=== PATIENT | male | born 1940 | race Caucasian/White ===

== ENCOUNTER → 2017-10-10 10:49 | Outpatient (CLI) | payer MEDICARE, SELFPAY ==
[2017-09-26 12:06] VITALS: TEMP 36.6
[2017-10-10 11:19] LABS: Add Manual Diff / Slide Review NO; Basophils Percent Auto 0.5 % (0-2); Hematocrit 34.2 % (41-53); Lymphocytes Percent Auto 22.7 % (25-40); Mean Corpuscular HGB Conc 35.1 % (30-36); Mean Corpuscular Hemoglobin 36.1 PG (26-34); Mean Corpuscular Volume 102.9 fL (80-100); Monocytes Percent Auto 8.2 % (3-14); Neutrophils Absolute Auto 2000 /uL (3000-5900); Neutrophils Percent Auto 64.6 % (50-75); Platelet Count 51 X10^3/uL (150-400); Red Blood Cell Count 3.33 X10^6/uL (4.5-5.9); Red Cell Distribution Width 14.1 % (11.6-14.8); White Blood Cell Count 3.1 X10^3/uL (4.5-11.0)
== END ==
PROVIDERS: Family Provider Family Medicine; PCP Family Medicine; Visit Provider Internal Medicine Hematology & Oncology
DX: C90.00 Multiple myeloma not having achieved remission (principal)
CPT/HCPCS: 36415; 85025

== ENCOUNTER → 2017-10-24 10:54 | Outpatient (CLI) | payer MEDICARE, SELFPAY ==
[2017-09-26 12:06] VITALS: TEMP 36.6
[2017-10-24 12:29] LABS: Alanine Aminotransferase 137 IU/L (21-72); Albumin 4.2 g/dL (3.5-5.0); Albumin Globulin Ratio 1.3 (1.0-2.8); Alkaline Phosphatase 96 U/L (38-126); Aspartate Aminotransferase 99 IU/L (17-59); BUN Creatinine Ratio 17.3 (6-22); Blood Urea Nitrogen 19 mg/dL (9-20); Calcium 9.6 mg/dL (8.4-10.2); Carbon Dioxide 25 mmol/L (22-32); Chloride 98 mmol/L (98-107); Estimated Glomerular Filt Rate > 60.0 mL/min (>60); Globulin 3.3 g/dL (1.7-4.1); Glucose 228 mg/dL (80-110); HEMOLYSIS < 15 (0-50); Potassium 4.4 mmol/L (3.4-5.1); Sodium 139 mmol/L (137-145); Total Protein 7.5 g/dL (6.3-8.2)
[2017-10-26 14:18] LABS: Free Kappa Light Chain 122.1 mg/L (3.3-19.4); Free Kappa/ Lambda Ratio 11.47 (0.26-1.65); Free Lambda 10.6 mg/L (5.7-26.3)
[2017-10-26 15:46] LABS: Immunoglobulin G, Quantitative 724 mg/dL (694-1618)
[2017-10-30 15:41] LABS: Immunoglobulin A 751
== END ==
PROVIDERS: Family Provider Family Medicine; PCP Family Medicine; Visit Provider Internal Medicine Hematology & Oncology
DX: C43.9 Malignant melanoma of skin, unspecified (principal)
CPT/HCPCS: 36415; 80053; 82784; 83883

== ENCOUNTER → 2017-11-01 12:42 | Outpatient (CLI) | payer MEDICARE, SELFPAY ==
[2017-11-01 13:19] LABS: Add Manual Diff / Slide Review NO; Basophils Percent Auto 0.5 % (0-2); Eosinophils Percent Auto 3.9 % (2-4); Hematocrit 34.6 % (41-53); Lymphocytes Percent Auto 27.5 % (25-40); Mean Corpuscular HGB Conc 34.7 % (30-36); Mean Corpuscular Volume 103.8 fL (80-100); Monocytes Percent Auto 8.7 % (3-14); Neutrophils Absolute Auto 1800 /uL (3000-5900); Neutrophils Percent Auto 59.4 % (50-75); Platelet Count 59 X10^3/uL (150-400); Red Blood Cell Count 3.33 X10^6/uL (4.5-5.9)
[2017-11-01 13:55] LABS: Free T4, Direct Thyroxine 1.17 ng/dL (0.78-2.19)
[2017-11-01 14:09] LABS: Thyroid Stimulating Hormone 1.29 uIU/mL (0.47-4.68)
[2017-11-01 14:44] LABS: Folate > 20.0 ng/mL (2.76-20.0)
[2017-11-01 15:37] LABS: Vitamin B12 > 1000 pg/mL (239-931)
== END ==
PROVIDERS: Family Provider Family Medicine; PCP Family Medicine; Visit Provider Internal Medicine Hematology & Oncology
DX: E78.00 Pure hypercholesterolemia, unspecified (principal); Z85.820 Personal history of malignant melanoma of skin
CPT/HCPCS: 82607; 82746; 84439; 84443; 85025

== ENCOUNTER → 2017-11-05 14:01 | Outpatient (CLI) | payer MEDICARE, SELFPAY ==
--- NOTE | 2017-11-05 | DI.US.S_ITS ---
PROCEDURE: US ABDOMEN COMPLETE INDICATIONS: Multiple Myeloma TECHNIQUE: Real-time scanning was performed of the abdominal and retroperitoneal organs, with image documentation. COMPARISON: [facility], [place], ABDOMEN COMPLETE, 01/23/2008, 10:14. FINDINGS: Liver: Liver is diffusely increased in echogenicity. No focal hepatic abnormalities identified. Normal hepatic size. Gallbladder: No gallstones identified. Normal gallbladder wall. No pericholecystic fluid. Negative sonographic Forrest sign. Biliary ducts: Intrahepatic bile ducts are non-dilated. Extrahepatic bile duct caliber measures 5.0 mm. Normal is 6-7 mm or less in diameter, or 10 mm or less post-cholecystectomy. Pancreas: Not well-seen. Spleen: Spleen is enlarged in size at 15.3 cm in length and homogeneous in echotexture. Kidneys: Kidneys are normal in size and echotexture. Right kidney measures 10.7 cm long; left kidney measures 1.9 cm long. No hydronephrosis or nephrolithiasis. No solid masses. Aorta: Visualized aorta is normal in caliber at less than 3 cm. Iliacs: Not visualized. IVC: Not visualized. Miscellaneous: No free abdominal fluid. IMPRESSION: 1. Increased hepatic echogenicity noted likely related to fatty infiltration. 2. Sonographic splenomegaly. Dictated by: Gary Bustamante [facility] Interpreted: Lyle Rice MD on 11/05/2017 at 15:09 Approved by: Lyle Rice M.D. on 11/05/2017 at 17:42
== END ==
PROVIDERS: Family Provider Family Medicine; PCP Family Medicine; Visit Provider Nurse Practitioner Gerontology
DX: C90.00 Multiple myeloma not having achieved remission (principal); R16.1 Splenomegaly, not elsewhere classified
CPT/HCPCS: 76700

== ENCOUNTER → 2018-01-14 11:13 | Outpatient (CLI) | payer MEDICARE, SELFPAY ==
[2018-01-14 11:26] LABS: Add Manual Diff / Slide Review NO; Basophils Percent Auto 0.7 % (0-2); Eosinophils Percent Auto 4.2 % (2-4); Hematocrit 32.4 % (41-53); Hemoglobin 11.3 g/dL (13.5-17.5); Lymphocytes Percent Auto 23.4 % (25-40); Mean Corpuscular HGB Conc 34.8 % (30-36); Mean Corpuscular Hemoglobin 34.9 PG (26-34); Mean Corpuscular Volume 100.4 fL (80-100); Monocytes Percent Auto 8.7 % (3-14); Neutrophils Absolute Auto 1300 /uL (3000-5900); Platelet Count 47 X10^3/uL (150-400); Red Blood Cell Count 3.23 X10^6/uL (4.5-5.9); Red Cell Distribution Width 15.8 % (11.6-14.8); White Blood Cell Count 2.1 X10^3/uL (4.5-11.0)
[2018-01-14 11:44] LABS: BUN Creatinine Ratio 23.3 (6-22); Blood Urea Nitrogen 28 mg/dL (9-20); Calcium 9.5 mg/dL (8.4-10.2); Carbon Dioxide 29 mmol/L (22-32); Chloride 100 mmol/L (98-107); Glucose 239 mg/dL (80-110); HEMOLYSIS < 15 (0-50); Potassium 4.6 mmol/L (3.4-5.1); Sodium 140 mmol/L (137-145)
--- NOTE | 2018-01-14 12:21 | PC.NURSE ---
Here for CBC,BMP both of which appear stable with the CBC values on an upward trend as pt moves thru his bonita
== END ==
PROVIDERS: Family Provider Family Medicine; PCP Family Medicine; Visit Provider Internal Medicine Hematology & Oncology
DX: D69.6 Thrombocytopenia, unspecified (principal)
CPT/HCPCS: 36415; 80048; 85025

== ENCOUNTER → 2018-01-30 10:29 | Outpatient (CLI) | payer MEDICARE, SELFPAY ==
[2018-01-30 10:58] LABS: Add Manual Diff / Slide Review NO; Basophils Percent Auto 0.5 % (0-2); Eosinophils Percent Auto 3.8 % (2-4); Hematocrit 33.4 % (41-53); Hemoglobin 11.4 g/dL (13.5-17.5); Lymphocytes Percent Auto 12.7 % (25-40); Mean Corpuscular HGB Conc 34.2 % (30-36); Mean Corpuscular Hemoglobin 35.2 PG (26-34); Mean Corpuscular Volume 102.8 fL (80-100); Monocytes Percent Auto 6.3 % (3-14); Neutrophils Absolute Auto 2300 /uL (3000-5900); Neutrophils Percent Auto 76.7 % (50-75); Platelet Count 50 X10^3/uL (150-400); Red Blood Cell Count 3.25 X10^6/uL (4.5-5.9); Red Cell Distribution Width 16.3 % (11.6-14.8)
[2018-01-30 11:09] LABS: Alanine Aminotransferase 119 IU/L (21-72); Albumin 4.1 g/dL (3.5-5.0); Albumin Globulin Ratio 1.3 (1.0-2.8); Alkaline Phosphatase 93 U/L (38-126); Aspartate Aminotransferase 73 IU/L (17-59); BUN Creatinine Ratio 14.6 (6-22); Bilirubin Total 1.2 mg/dL (0.2-1.3); Blood Urea Nitrogen 19 mg/dL (9-20); Calcium 9.4 mg/dL (8.4-10.2); Carbon Dioxide 31 mmol/L (22-32); Chloride 98 mmol/L (98-107); Estimated Glomerular Filt Rate 53.8 mL/min (>60); Globulin 3.2 g/dL (1.7-4.1); Glucose 239 mg/dL (80-110); HEMOLYSIS < 15 (0-50); Lactate Dehydrogenase 515 U/L (313-618); Potassium 4.4 mmol/L (3.4-5.1); Sodium 140 mmol/L (137-145); Total Protein 7.3 g/dL (6.3-8.2)
[2018-02-01 13:26] LABS: Free Kappa Light Chain 129.6 mg/L (3.3-19.4); Free Kappa/ Lambda Ratio 13.67 (0.26-1.65); Free Lambda 9.5 mg/L (5.7-26.3)
[2018-02-03 09:29] LABS: Immunoglobulin A 1043 mg/dL (81-463); Immunoglobulin G, Quantitative 411 mg/dL (694-1618); Immunoglobulin M, Quantitative 52 mg/dL (48-271)
[2018-02-05 13:03] LABS: Albumin 3.7 g/dL (3.8-4.8); Alpha 1 Globulin 0.2 g/dL (0.2-0.3); Alpha 2 Globulin 0.7 g/dL (0.5-0.9); Beta 1 Globulin 1.2 g/dL (0.4-0.6); Gamma Globulin 0.4 g/dL (0.8-1.7); Protein, Total 6.5 g/dL (6.1-8.1)
== END ==
PROVIDERS: Family Provider Family Medicine; PCP Family Medicine; Visit Provider Internal Medicine Hematology & Oncology
DX: C90.00 Multiple myeloma not having achieved remission (principal); Z85.820 Personal history of malignant melanoma of skin
CPT/HCPCS: 36415; 80053; 82784; 83615; 83883; 84155; 84165; 85025

== ENCOUNTER → 2018-03-06 12:00 | Outpatient (CLI) | payer MEDICARE, SELFPAY ==
[2018-03-06 11:47] LABS: Add Manual Diff / Slide Review NO; Basophils Percent Auto 0.3 % (0-2); Eosinophils Percent Auto 0.6 % (2-4); Hemoglobin 12.1 g/dL (13.5-17.5); Lymphocytes Percent Auto 11.7 % (25-40); Mean Corpuscular HGB Conc 33.7 % (30-36); Mean Corpuscular Hemoglobin 35.4 PG (26-34); Mean Corpuscular Volume 105.1 fL (80-100); Monocytes Percent Auto 2.3 % (3-14); Neutrophils Absolute Auto 3500 /uL (3000-5900); Neutrophils Percent Auto 85.1 % (50-75); Platelet Count 48 X10^3/uL (150-400); Red Blood Cell Count 3.43 X10^6/uL (4.5-5.9); Red Cell Distribution Width 16.7 % (11.6-14.8); White Blood Cell Count 4.1 X10^3/uL (4.5-11.0)
[2018-03-06 12:01] LABS: Cholesterol 208 mg/dL (140-199); HDL Cholesterol 74 mg/dL (40-60); LDL Cholesterol Calculated 60 mg/dL (<100); Triglycerides 372 mg/dL (35-150)
[2018-03-06 12:02] LABS: Alanine Aminotransferase 161 IU/L (21-72); Albumin 3.9 g/dL (3.5-5.0); Albumin Globulin Ratio 1.3 (1.0-2.8); Alkaline Phosphatase 103 U/L (38-126); Aspartate Aminotransferase 88 IU/L (17-59); BUN Creatinine Ratio 28.5 (6-22); Bilirubin Total 0.8 mg/dL (0.2-1.3); Blood Urea Nitrogen 37 mg/dL (9-20); Calcium 8.6 mg/dL (8.4-10.2); Carbon Dioxide 23 mmol/L (22-32); Chloride 98 mmol/L (98-107); Estimated Glomerular Filt Rate 53.8 mL/min (>60); Globulin 2.9 g/dL (1.7-4.1); Glucose 381 mg/dL (80-110); HEMOLYSIS < 15 (0-50); Lactate Dehydrogenase 618 U/L (313-618); Potassium 4.5 mmol/L (3.4-5.1); Sodium 136 mmol/L (137-145); Total Protein 6.8 g/dL (6.3-8.2)
[2018-03-06 12:17] LABS: Hemoglobin A1C% w Est Avg Glu 10.6 % (4.0-6.0)
[2018-03-06 12:20] LABS: Vitamin D 25 Hydroxy (D3) 35.1 ng/mL (30.0-100.0)
[2018-03-06 12:32] LABS: Prostate Specific Antigen Scrn 2.95 ng/mL (0.1-4.0)
[2018-03-08 13:32] LABS: Immunoglobulin A 996 mg/dL (81-463); Immunoglobulin G, Quantitative 344 mg/dL (694-1618); Immunoglobulin M, Quantitative 43 mg/dL (48-271)
[2018-03-08 14:23] LABS: Beta-2-Microglobulin 2.56 mg/L (< 2.52)
[2018-03-08 14:29] LABS: Free Kappa Light Chain 95.7 mg/L (3.3-19.4); Free Kappa/ Lambda Ratio 11.24 (0.26-1.65); Free Lambda 8.5 mg/L (5.7-26.3)
[2018-03-10 17:11] LABS: Albumin 3.6 g/dL (3.8-4.8); Alpha 1 Globulin 0.2 g/dL (0.2-0.3); Alpha 2 Globulin 0.7 g/dL (0.5-0.9); Beta 1 Globulin 1.2 g/dL (0.4-0.6); Gamma Globulin 0.4 g/dL (0.8-1.7); Protein, Total 6.4 g/dL (6.1-8.1)
== END ==
PROVIDERS: Student in an Organized Health Care Education/Training Program; Family Provider Family Medicine; PCP Family Medicine; Visit Provider Internal Medicine Hematology & Oncology
DX: C90.00 Multiple myeloma not having achieved remission (principal); R35.1 Nocturia; E11.9 Type 2 diabetes mellitus without complications; E78.00 Pure hypercholesterolemia, unspecified; E55.9 Vitamin D deficiency, unspecified; Z12.5 Encounter for screening for malignant neoplasm of prostate
CPT/HCPCS: 36415; 80053; 80061; 82232; 82306; 82784; 83036; 83615; 83883; 84155; 84165; 85025; G0103

== ENCOUNTER → 2018-04-03 10:49 | Outpatient (CLI) | payer MEDICARE, SELFPAY ==
[2018-04-03 11:55] LABS: Add Manual Diff / Slide Review NO; Basophils Percent Auto 0.4 % (0-2); Eosinophils Percent Auto 0.5 % (2-4); Hematocrit 31.8 % (41-53); Hemoglobin 10.9 g/dL (13.5-17.5); Lymphocytes Percent Auto 12.6 % (25-40); Mean Corpuscular HGB Conc 34.2 % (30-36); Mean Corpuscular Hemoglobin 35.7 PG (26-34); Mean Corpuscular Volume 104.5 fL (80-100); Monocytes Percent Auto 3.9 % (3-14); Neutrophils Absolute Auto 2800 /uL (3000-5900); Neutrophils Percent Auto 82.6 % (50-75); Red Blood Cell Count 3.05 X10^6/uL (4.5-5.9); Red Cell Distribution Width 16.2 % (11.6-14.8); White Blood Cell Count 3.4 X10^3/uL (4.5-11.0)
[2018-04-03 12:25] LABS: Alanine Aminotransferase 62 IU/L (21-72); Albumin 4.1 g/dL (3.5-5.0); Albumin Globulin Ratio 1.3 (1.0-2.8); Alkaline Phosphatase 78 U/L (38-126); Aspartate Aminotransferase 39 IU/L (17-59); BUN Creatinine Ratio 15.6 (6-22); Bilirubin Total 1.1 mg/dL (0.2-1.3); Blood Urea Nitrogen 25 mg/dL (9-20); Calcium 9.7 mg/dL (8.4-10.2); Carbon Dioxide 27 mmol/L (22-32); Chloride 100 mmol/L (98-107); Estimated Glomerular Filt Rate 42.3 mL/min (>60); Globulin 3.1 g/dL (1.7-4.1); Glucose 116 mg/dL (80-110); HEMOLYSIS < 15 (0-50); Lactate Dehydrogenase 523 U/L (313-618); Potassium 4.7 mmol/L (3.4-5.1); Sodium 140 mmol/L (137-145); Total Protein 7.2 g/dL (6.3-8.2)
[2018-04-03 12:53] LABS: Anisocytosis 2+; Macrocytosis 1+; Platelet Count 47 X10^3/uL (150-400); Poikilocytosis 1+; Polychromasia 2+
[2018-04-03 13:00] LABS: Tear Drop Cells 1+
[2018-04-04 16:09] LABS: Free Kappa Light Chain 165.1 mg/L (3.3-19.4); Free Kappa/ Lambda Ratio 15.18 (0.26-1.65); Free Lambda 10.9 mg/L (5.7-26.3)
[2018-04-06 13:13] LABS: Immunoglobulin G, Quantitative 311 mg/dL (694-1618); Immunoglobulin M, Quantitative 45 mg/dL (48-271)
[2018-04-07 14:33] LABS: Abnormal Protein Band 1 0.1 g/dL (NONE DETECTED); Albumin 3.3 g/dL (3.8-4.8); Alpha 1 Globulin 0.3 g/dL (0.2-0.3); Alpha 2 Globulin 0.8 g/dL (0.5-0.9); Beta 1 Globulin 1.2 g/dL (0.4-0.6); Gamma Globulin 0.4 g/dL (0.8-1.7); Protein, Total 6.4 g/dL (6.1-8.1)
== END ==
PROVIDERS: Family Provider Family Medicine; PCP Student in an Organized Health Care Education/Training Program; Visit Provider Nurse Practitioner Gerontology
DX: C90.00 Multiple myeloma not having achieved remission (principal); D69.6 Thrombocytopenia, unspecified
CPT/HCPCS: 36415; 80053; 82784; 83615; 83883; 84155; 84165; 85025

== ENCOUNTER 2018-05-13 10:52 | Day surgery (SDC) | payer MEDICARE, SELFPAY ==
[2018-05-08 11:03] VITALS: BMI 36.6
[2018-05-13] VITALS (7 sets, daily range): BP systolic 118–132; BP diastolic 62–74; PULSE 54–56; RESP 12–18; TEMP 36–36.4; O2SAT 93–97; BMI 35.4
--- NOTE | 2018-05-13 | DI.RAD.S_ITS ---
PROCEDURE: XR CHEST 1V INDICATIONS: PORT A CATH PLACEMENT TECHNIQUE: One view of the chest was acquired. COMPARISON: [facility], , CHEST 2 VIEW, 06/04/2015, 11:08. [facility], , CHEST 1 VIEW, 12/03/2012, 19:28. FINDINGS: Surgical changes and devices: Port-A-Cath from a left-sided approach extends into the distal SVC area. Lungs and pleura: No pleural effusions or pneumothorax. Lungs are clear. Mediastinum: Mediastinal contours appear normal. Heart size is normal. Bones and chest wall: No suspicious bony lesions. Overlying soft tissues appear unremarkable. IMPRESSION: Port-A-Cath in normal position from the left-sided approach, no pneumothorax. Dictated by: Garrick Navarro M.D. on 05/13/2018 at 13:16 Approved by: Garrick Navarro M.D. on 05/13/2018 at 13:17
--- NOTE | 2018-05-13 11:38 | PM.PREOP ---
Pre-operative Note Interval Note Pre-op Check: Yes History & Physical Reviewed by Physician and Yes Exam Performed Changes: No H&P completed within 30 days and has changed as indicated here:: Patient seen in the preoperative area. His history and physical examination within the last 30 days has not changed in remains on the chart as previously dictated. Proceed with port placement today as planned.
[2018-05-13] MEDS: LACTATED RINGERS 1,000 ML 42 ML IV (11:42)
[2018-05-13] MEDS: CEFAZOLIN 2 GM/100 ML FROZ.PIGGY IV (12:00)
--- NOTE | 2018-05-13 12:24 | SUR.OPER ---
Supine on padded OR bed, head on pillow, right arm secured on padded arm boards at <90 degrees abduction,left arm is tucked, legs uncrossed, safety belt at thigh, tape over blanket over lower legs.
[2018-05-13] MEDS: LIDOCAINE 1% 20 ML INJ INJ (12:34)
[2018-05-13] MEDS: SODIUM CHLORIDE 0.9% FLUSH 10 ML IV (12:35)
--- NOTE | 2018-05-13 13:17 | P.OP_ITS ---
Operative Date/Time/Diagnoses Date of procedure: 05/13/18 Time of procedure: 13:12 Pre-op diagnosis: Multiple myeloma requiring long-term IV access for chemotherapy Post-op diagnosis: same Procedure & Clinicians Procedure: Placement of tunneled central venous Port-A-Cath device via left subclavian approach Same procedure as scheduled: Yes Indications: 77-year-old male with multiple myeloma and recent progression of his disease. He was recommended undergo systemic chemotherapy. Long-term IV access was needed for such. Therefore port placement was recommended. Surgeon: Landon Claros Click Yes if Unassisted: Yes Anesthesia Type: General Operative Notes Findings: 1. Significant cardiomegaly 2. Left subclavian central venous port device in good position with tip in distal superior vena cava by fluoroscopy at the conclusion of the case 3. Excellent aspiration and flushing of tunneled port device at the conclusion of the case 4. Postoperative chest x-ray demonstrating good position of the catheter with no evidence of pneumothorax. Closure Type: primary Specimen(s): none sent Implants & Drains: Nine [place] standard tunneled central venous port device via left subclavian approach Applied: catheter (See above) Estimated Blood Loss (mL): 15 Blood products transfused: none Procedure in detail: After obtaining informed consent patient was brought to the operating room placed supine on the table. Left arm was tucked to the side and padded appropriately. Shoulder roll was placed. After satisfactory induction of anesthesia the neck and chest were prepped and draped in usual sterile fashion. SCOAP time out was performed per standard protocol. Patient was placed in Trendelenburg position. A total 10 cc 1% plain lidocaine was injected in the skin and subcutaneous tissue at the inferior aspect of the left clavicle and anterior chest wall for postoperative analgesia. Introducer needle was placed percutaneously deep to the left clavicle in the left subclavian vein was accessed without difficulty on the 1st attempt. Guidewire was threaded distally and secured. Fluoroscopy confirmed good position of the wire in the right heart although he had some cardiomegaly and deviation of the trachea to the right. Patient was returned to supine position. Guidewire was secured after removing the needle and a transverse skin incision was created over the left anterior chest wall inferior to the guidewire insertion site using 15 scalpel blade. Bovie was used to achieve hemostasis and carried the dissection down to the pectoralis fascia. Subcutaneous pocket was bluntly dissected large enough to accommodate the port device itself. The catheter was attached to the port device using the locking mechanism and noted to flush easily with Hernandez needle and saline flush. The port was placed in the subcutaneous pocket and secured with 3 individual interrupted 3 0 Prolene suture to the anterior chest wall. Catheter was brought to exit through a subcutaneous tunnel at the guidewire insertion site using the tunneling device. Fluoroscopy was used to estimate the size of the catheter required to achieve appropriate position, and the catheter was then cut at approximately 27 cm length using straight Leon scissors. Using direct fluoroscopic visualization the venous dilator and sheath were placed via sterile Seldinger technique into the central venous system. Catheter was threaded distally through the sheath after removing the guidewire and dilator as a single unit. Sheath was removed and discarded. Fluoroscopy showed the catheter to be in good position. Port was accessed with straight Hernandez needle under direct visualization and noted to aspirate and flush easily. There was no evidence of extravasation. Subcutaneous pocket was irrigated with sterile saline solution and noted to be hemostatic. Subcutaneous tissue at the guidewire insertion site as well as the subcutaneous pocket was reapproximated with interrupted 3 0 Vicryl suture. Four 0 Monocryl suture was placed in a subcuticular running fashion to close the skin. Dermal adhesive was applied. Following closure the device was accessed percutaneously with a straight Hernandez needle and noted to aspirate and flushed with saline followed by 2000 units of heparin. Needle was removed. Anesthesia was reversed and the patient extubated in the operating room. He was taken recovery stable condition. Complications: none Condition: stable Disposition: PACU Plan for aftercare: 1. Discharge home 2. Follow up in medical oncology as scheduled for chemotherapy
--- NOTE | 2018-05-13 14:03 | SUR.PHASEII ---
pt's x-ray was clear per Dr. Claros. Pt d\nupur with . denied any pain upon d/c wound dry and intact upon d/c. Pt had 2 cranberry juices and a pack of crackers prior to d/c. Pt denies nausea.
== END 2018-05-13 13:55 | disposition home or self-care (01) ==
PROVIDERS: PCP Family Medicine; Visit Provider Surgery
PROC: (CPT 36561; principal; 2018-05-13 12:45)
DX: C90.00 Multiple myeloma not having achieved remission (principal); Z45.2 Encounter for adjustment and management of vascular access device; I25.2 Old myocardial infarction; I10 Essential (primary) hypertension; E78.5 Hyperlipidemia, unspecified; I25.10 Atherosclerotic heart disease of native coronary artery without angina pectoris; F10.10 Alcohol abuse, uncomplicated; D64.9 Anemia, unspecified; E66.9 Obesity, unspecified; Z68.36 Body mass index [BMI] 36.0-36.9, adult
CPT/HCPCS: 36561; 71045; 76000; C1788; J0690; J1644; J2405; J2704; J3010

== ENCOUNTER → 2018-07-01 10:10 | Outpatient (CLI) | payer MEDICARE, SELFPAY ==
--- NOTE | 2018-07-01 10:12 | DI.US.S_ITS ---
PROCEDURE: US ABDOMEN COMPLETE INDICATIONS: MULTIPLE MYEOLOMA NOT HAVING ACHIEVED REMISSION TECHNIQUE: Real-time scanning was performed of the abdominal and retroperitoneal organs, with image documentation. COMPARISON: [facility], [place], [place] PET CT FUSION SKULL 2 THIGH, 05/14/2018, 14:06. [facility], [place], [place] ABDOMEN COMPLETE, 11/05/2017, 14:28. FINDINGS: Liver: Liver is diffusely increased in echogenicity. No focal hepatic abnormalities identified. Normal hepatic size. Gallbladder: No gallstones identified. Normal gallbladder wall. No pericholecystic fluid. Negative sonographic Forrest sign. Biliary ducts: Intrahepatic bile ducts are non-dilated. Extrahepatic bile duct caliber measures 4.6 mm. Normal is 6-7 mm or less in diameter, or 10 mm or less post-cholecystectomy. Pancreas: Visualized portions of the pancreas are sonographically normal. Spleen: Spleen is normal in enlarged at 15.3 cm and homogeneous in echotexture. Kidneys: Kidneys are normal in size and echotexture. Right kidney measures 10.1 cm long; left kidney measures 10.1 cm long. No hydronephrosis or nephrolithiasis. No solid masses. Aorta: Visualized aorta is normal in caliber at less than 3 cm. Iliacs: Not visualized. IVC: Intrahepatic inferior vena cava is patent. Miscellaneous: No free abdominal fluid. IMPRESSION: 1. Increased hepatic echogenicity noted possibly related to hepatic steatosis but other sources of hepatocellular disease cannot be excluded. Recommend clinical correlation. 2. Sonographic splenomegaly redemonstrated. Dictated by: Gary LAMBERT Interpreted: Lennox Marroquin MD on 07/01/2018 at 11:10 Approved by: Lennox Marroquin M.D. on 07/01/2018 at 18:39
== END ==
PROVIDERS: PCP Student in an Organized Health Care Education/Training Program; Visit Provider Internal Medicine Hematology & Oncology
DX: C90.00 Multiple myeloma not having achieved remission (principal); R16.1 Splenomegaly, not elsewhere classified
CPT/HCPCS: 76700

== ENCOUNTER → 2018-08-27 12:05 | Outpatient (CLI) | payer MEDICARE, SELFPAY ==
--- NOTE | 2018-08-27 | DI.ECHO.S_ITS ---
[facility] +---------+ : : [address] : : : : [id number] : : : : Phone: [phone]+ Echocardiogram Report + + :Name: NATACHA MORENO Study Date: 08/27/2018 Height: 67 in : :[facility] Exam Location: [place] Weight: 220 lb : : Gender: Male BSA: 2.1 m2 : :: 1940 Age: 77 yrs BP: 120/70 mmHg: :Reason For Study: Fatigue : :Ordering Physician: Dionicio : :Mitch Performed By: Adriana Page : :Referring: UNSPECIFIED : + + Interpretation Summary The patient was not feeling well and was unable to complete the subcostals and suprasternal notch due to vomiting . He said it was likely due to his cancer treatment .He started feeling better and his took him home. 1) Normal left ventricular size, wall motion, and systolic function (EF 65- 70%). 2) Normal right ventricular size and function. 3) The left atrium is severely dilated. 4) Very mild aortic stenosis present (mean gradient 10.6mmHg, valve area 2.2 cm2). 5) Compared to the Echo done 11/20/2016, very mild aortic stenosis is present on this study. Procedure: A two-dimensional transthoracic echocardiogram with color flow and Doppler was performed. The study quality was technically adequate. Comparison is made with the echocardiogram of 11/20/2016. The patient was in normal sinus rhythm during the exam. Left Ventricle: There is mild concentric left ventricular hypertrophy. The left ventricle is normal in size. The ejection fraction is estimated to be 65- 70%. There are no focal wall motion abnormalities. Right Ventricle: The right ventricle is normal in size and function. Atria: The left atrium is severely dilated. Right atrial size is normal. There is no Doppler evidence for an interatrial shunt. Mitral Valve: The mitral valve is normal in structure and function. There is trace mitral regurgitation. Aortic Valve: The aortic valve is trileaflet. The aortic valve is mildly calcified. Leaflet mobility is minimally reduced. The peak aortic velocity is 2.2 m/sec. The peak aortic velocity on the previous exam was 1.7 m/sec. The aortic valve mean gradient is 10.6 mmHg. Very minimal aortic stenosis present. No aortic regurgitation is present. Tricuspid Valve: The tricuspid valve is normal in structure and function. There is trace tricuspid regurgitation. Right ventricular systolic pressure is estimated to be 21 mmHg plus the clinically estimated CVP which cannot be estimated on this exam. Pulmonic Valve: The pulmonic valve is not well visualized. There is a trace or physiologic amount of pulmonic regurgitation. Great Vessels: The aortic root is normal size. The ascending aorta is mildly enlarged. The pulmonary artery is not well visualized, but is probably normal size. The inferior vena cava was not visualized. Pericardium/ Pleura There is no pericardial effusion. There is no pleural effusion. MMode/2D Measurements & Calculations LVIDd: 5.1 cm LVOT diam: 2.2 cm LVIDs: 2.7 cm Ao root diam: 3.8 cm FS: 46.0 % asc Aorta Diam: 3.9 cm EPSS: 0.40 cm IVSd: 0.96 cm LVPWd: 1.1 cm LV espinal. diameter/BSA (cm/m^2): 2.4 LV sys. diameter/BSA (cm/m^2): 1.3 LA A2 area: 27.8 cm2 RA long axis: 5.4 cm LA A4 area: 27.8 cm2 RA area: 12.2 cm2 LA length (vol): 6.0 cm RA vol: 23.5 ml LA vol: 109.3 ml RA : 11.2 ml/m2 LA vol index: 51.9 ml/m2 RVD1 (basal): 3.7 cm Doppler Measurements & Calculations Ao V2 max: 224.6 cm/sec LVOT Max Nain: 123.9 cm/sec Ao V2 mean: 154.7 cm/sec LV V1 max P.1 mmHg Ao max P.2 mmHg LV V1 VTI: 27.8 cm Ao mean P.6 mmHg CEZAR(I,D): 2.6 cm2 Ao V2 VTI: 42.9 cm CEZAR(V,D): 2.2 cm2 sev ratio: 0.65 CEZAR indexed to BSA (cm^2/m^2): 1.2 MV E max nain: 81.9 cm/sec TR max nain: 228.5 cm/sec MV A max nain: 77.5 cm/sec TR max P.9 mmHg MV E/A: 1.1 PA V2 max: 116.7 cm/sec Med Peak E' Nain: 6.4 cm/sec PA V2 mean: 74.9 cm/sec E/E' med: 12.7 PA mean P.6 mmHg Lat Peak E' Nain: 9.9 cm/sec PA Accel Time: 0.11 sec E/E' lat: 8.3 E/e' average: 10.5 MV dec time: 0.27 sec MV P1/2t: 80.3 msec MV P1/2t max nain: 82.0 cm/sec SV(LVOT): 109.6 ml MVA(P1/2t): 2.7 cm2 Reading Physician:05:32 PM
[2018-08-27 12:54] LABS: Alanine Aminotransferase 54 IU/L (21-72); Albumin 4.2 g/dL (3.5-5.0); Albumin Globulin Ratio 1.9 (1.0-2.8); Alkaline Phosphatase 85 U/L (38-126); Aspartate Aminotransferase 39 IU/L (17-59); Bilirubin Total 0.8 mg/dL (0.2-1.3); Blood Urea Nitrogen 17 mg/dL (9-20); Carbon Dioxide 25 mmol/L (22-32); Chloride 99 mmol/L (98-107); Estimated Glomerular Filt Rate > 60.0 mL/min (>60); Globulin 2.2 g/dL (1.7-4.1); Glucose 184 mg/dL (80-110); HEMOLYSIS < 15 (0-50); Magnesium 1.7 mg/dL (1.6-2.3); Potassium 3.9 mmol/L (3.4-5.1); Sodium 137 mmol/L (137-145); Total Protein 6.4 g/dL (6.3-8.2)
== END ==
PROVIDERS: Family Provider Family Medicine; PCP Family Medicine; Visit Provider Physician Assistant Medical
DX: I35.0 Nonrheumatic aortic (valve) stenosis (principal); R53.83 Other fatigue; R60.0 Localized edema
CPT/HCPCS: 36415; 80053; 83735; 93306

== ENCOUNTER 2018-11-20 12:24 | Emergency (ER) | payer MEDICARE, SELFPAY ==
[2018-11-20 12:36] VITALS: BP 114/59; PULSE 59; RESP 24; TEMP 36.6; O2SAT 98
[2018-11-20 13:12] VITALS: BP 118/55; PULSE 57; RESP 20; O2SAT 96
--- NOTE | 2018-11-20 13:18 | ED.RECABL ---
HPI - Recheck/Abnormal Lab/Rx General Chief Complaint: Recheck/Abnormal Lab/Rx Stated Complaint: blood transfusion Time Seen by Provider: 11/20/18 12:47 Source: patient and old records reviewed Mode of arrival: ambulatory Limitations: no limitations History of Present Illness HPI narrative: Patient is 77-year-old male sent in from Oncology for anemia. He is currently being treated for multiple myeloma. He overall has been reporting significant fatigue over the last few weeks. He is says that he may have some shortness of breath with exertion but overall seems comfortable now. He denies any black or bright red blood in his stool. His abdomen seems distended to me he says that is normal. He did fall has a small contusion there. No other signs of trauma. He recently had a Mohs procedure on his right periauricular area. Bleeding seems to be controlled at that area. He had outpatient blood work hemoglobin found to be 5.4 with a hematocrit 16.1. Significantly lower than what it was in september. MD complaint: abnormal lab Related Data Home Medications Medication Instructions Recorded Confirmed aspirin [Aspir-81] 81 mg PO DAILY #0 11/14/11 10/09/18 coenzyme Q10 [CoQ-10] 300 mg PO DAILY #0 07/06/16 10/09/18 multivitamin [Multiple Vitamins] 1 tab PO QDAY #0 10/19/16 11/20/18 atorvastatin [Lipitor] 10 mg PO QDAY #0 02/14/17 10/09/18 cyanocobalamin (vitamin B-12) 500 mcg PO QDAY #0 05/30/17 10/09/18 [Vitamin B-12] folic acid 1 mg PO QDAY #0 05/30/17 10/09/18 finasteride 5 mg PO DAILY 05/05/18 10/09/18 lidocaine 1 patch TOP DAILY PRN 05/13/18 10/09/18 hydrochlorothiazide 25 mg tablet 25 mg PO DAILY 06/03/18 10/09/18 losartan 50 mg tablet 50 mg PO DAILY 06/03/18 10/09/18 magnesium oxide 400 mg PO DAILY 10/09/18 11/20/18 tolterodine ER 4 mg 4 mg PO DAILY 10/23/18 capsule,extended release 24 hr oxybutynin chloride 5 mg PO DAILY 11/20/18 11/20/18 Previous Rx's Medication Instructions Recorded citalopram 10 mg PO DAILY #60 tab 12/09/17 atenolol 50 mg tablet 50 mg PO QDAY #90 tab 04/02/18 Lancets #100 each 04/03/18 pen needle, diabetic 31 gauge x #100 each 04/30/1810/09 hydrocodone-acetaminophen 1 tab PO Q4HR #14 tab 05/13/18 metformin 500 mg tablet 1,000 mg PO BIDCC #120 tab 06/12/18 [teststrips] - True Metrix #100 each 07/28/18 furosemide [Lasix] 20 mg PO DAILY PRN #10 tab 07/31/18 ondansetron 4 mg PO Q6-8H PRN #60 tab 07/31/18 insulin lispro (U- 100) 100 10 unit SUBCUT QAC #3 ml 09/01/18 unit/mL subcutaneous pen insulin lispro (U- 100) 100 See Rx Instructions SUBCUT QAC #15 09/01/18 unit/mL subcutaneous pen ml insulin NPH isophane U-100 human 15 unit SUBCUT BID #15 ml 09/25/18 100 unit/mL (3 mL) subcutaneous pen lorazepam 0.5 mg PO Q6HP PRN #60 tab 10/09/18 doxazosin 8 mg tablet 8 mg PO Q DAY #90 tab 10/14/18 Pen [place] [id number] #100 each 10/22/18 capsaicin 0.025 % topical patch 1 patch TOP DAILY PRN #1 each 10/30/18 acyclovir 400 mg PO BID #120 tab 11/20/18 dexamethasone 4 mg PO DAILY #100 tab 11/20/18 oxycodone 5 mg PO Q6H PRN #60 tab 11/20/18 Allergies Allergy/AdvReac Type Severity Reaction Status Date / Time Sulfa (Sulfonamide Allergy Intermediate RASH Verified 07/11/18 09:36 Antibiotics) Review of Systems Review of Systems ROS Unobtainable: All systems reviewed & are unremarkable except as noted in HPI and below Constitutional Denies chills, Reports fatigue and Reports weakness Eyes Denies change in vision, Denies eye discharge, Denies irritation and Denies loss of vision ENT Ears, Nose, Mouth, and Throat: Denies change in voice, Denies neck pain and Denies sore throat Cardiovascular Denies chest pain, Denies irregular heart rhythm, Denies lightheadedness, Denies palpitations, Denies dyspnea, Denies dyspnea on exertion and Denies orthopnea Respiratory Denies dyspnea and Denies dyspnea on exertion Gastrointestinal Gastrointestinal: Denies abdominal pain, Denies change in bowel habits, Denies diarrhea, Denies nausea and Denies vomiting Genitourinary Denies hematuria, Denies flank pain, Denies urinary incontinence and Denies urinary urgency Musculoskeletal Denies neck pain Integumentary/Breasts Denies pruritus, Denies erythema, Denies rash and Denies wounds Neurologic Denies loss of vision and Reports weakness Endocrine Reports fatigue and Denies palpitations [facility] Medical History Multiple myeloma (Acute ~04/2016) Alcoholism /alcohol abuse (Chronic) Chronic back pain (Chronic 2012) Coronary artery disease (Chronic) Depression (Chronic) Erectile dysfunction (Chronic) GERD (gastroesophageal reflux disease) (Chronic) Hearing loss (Chronic) Hyperlipemia (Chronic) Hypertension (Chronic) Osteoporosis (Chronic) Spinal stenosis (Chronic) Cataracts, bilateral (Resolved) Melanoma (Resolved 2005) Myocardial infarction (Resolved 2000) Shoulder pain (Resolved) Surgical History History of bone marrow biopsy (Acute 04/01/18) History of ear surgery (Resolved) History of hip replacement (Resolved ~2004) Hx of arthroscopy of knee (Resolved) Hx of cataract surgery (Resolved) Hx of heart artery stent (Resolved) Hx of laminectomy (Resolved) Hx of tonsillectomy (Resolved) Family History Father No problems noted. Mother Cancer Family/Other Stroke Social History marital status: household members: spouse occupational status: previously employed Smoking Status: Never smoker alcohol intake: current substance use type: does not use Family History Father No problems noted. Mother Cancer Family/Other Stroke Social History marital status: household members: spouse occupational status: previously employed Smoking Status: Never smoker alcohol intake: current substance use type: does not use Exam Initial Vital Signs Initial Vital Signs: Vital Signs Temperature 97.8 F 11/20/18 12:36 Pulse Rate 59 L 11/20/18 12:36 Respiratory Rate 24 11/20/18 12:36 Blood Pressure 114/59 L 11/20/18 12:36 Pulse Oximetry 98 11/20/18 12:36 GENERAL: Overweight male appears well and in no acute distress. HEENT: Head atraumatic,EOMI, pupils reactive, face symmetric, moist mucous membranes, incision site noted at right auricular area CARDIOVASCULAR: Regular rate and rhythm without murmurs, rubs or gallops. RESPIRATORY: Breath sounds equal bilaterally, no wheezes rales or rhonchi. ABDOMEN: Soft, nontender. Normoactive bowel sounds all 4 quadrants. No guarding or rebound. RECTAL: Hemoccult-positive, no hemorrhoids, nontender : No CVA tenderness EXTREMITIES: Normal range of motion, no clubbing or edema. Neurovascularly intact NEUROLOGICAL: Alert and oriented x4.Normal gait and speech. Cranial nerves II through XII grossly intact. SKIN: Warm, dry, no laceration, no petechiae, no rashes or lesions. Course Orders Ordered: ED Orders 11/20/18 13:45 Hemoglobin and Hematocrit Stat Partial Thromboplastin Time Stat Prothrombin Time INR Stat Vital Signs - 8 hr 11/20/18 12:36 11/20/18 13:12 11/20/18 14:00 Temperature 97.8 F Pulse Rate 59 L 57 L 55 L Respiratory Rate 24 20 Blood Pressure 114/59 L Blood Pressure [Right Arm] 118/55 L 127/62 Pulse Oximetry 98 96 11/20/18 14:37 Temperature Pulse Rate 56 L Respiratory Rate 17 Blood Pressure 119/60 Blood Pressure [Right Arm] Pulse Oximetry 97 [facility] - Recheck/Abnormal Lab/Rx Lab Data Attestation: I reviewed the patient's lab results. Result diagrams: 11/20/18 13:45 Lab Results 11/20/18 11/20/18 Range/Units 13:45 13:45 Hgb 7.3 L (13.5-17.5) g/dL Hct 21.7 L (41-53) % PT 12.4 (10.1-12.7) SECONDS INR 1.1 (0.9-1.3) APTT 32 (26.4-36.2) SECONDS MDM Narrative Medical decision making narrative: Patient overall does not appear pale or in any acute distress. Repeat H&H is actually significantly improved in more at his baseline. I think previous blood work there was an error. The patient's blood is requiring to come from [place] due to multiple antibodies. It will be here until tomorrow. I called and spoke with oncology Dr. Bloom, who will set up outpatient transfusion. Patient and spouse are agreeable to this and actually requesting to go home. Discharge Plan Departure Patient Disposition: Home Clinical Impression: Anemia Qualifiers: Anemia type: unspecified type Qualified Code(s): D64.9 - Anemia, unspecified Discharge Date/Time: 11/20/18 14:40 Interventions: ED Discharge Assessment Last Done: 11/20/18 14:37 Instructions: Anemia Activity Restrictions/Additional Instructions: *You have been diagnosed with anemia *What to do: You do need a blood transfusion. Her blood is on his way from [place]. Oncology will set up outpatient infusion and you should hear from then this afternoon or tomorrow. Expect to have blood transfusion tomorrow *Continue to take medications as directed *Follow up with your primary care provider in 2-3 days *Return to ER if you should have increasing weakness, shortness of breath or any new, worsening or concerning symptoms Prescriptions: No Action aspirin [Aspir-81] 81 mg Tablet,Delayed Release (Dr/Ec) 81 mg PO DAILY Qty: 0 RF: 0 coenzyme Q10 [CoQ-10] 100 mg Capsule 300 mg PO DAILY Qty: 0 RF: 0 multivitamin [Multiple Vitamins] 1 EACH tablet 1 tab PO QDAY Qty: 0 RF: 0 atorvastatin [Lipitor] 10 MG tablet 10 mg PO QDAY Qty: 0 RF: 0 cyanocobalamin (vitamin B-12) [Vitamin B-12] 500 MCG tablet 500 mcg PO QDAY Qty: 0 RF: 0 folic acid 0.8 MG tablet 1 mg PO QDAY Qty: 0 RF: 0 atenolol 50 mg tablet 50 mg PO QDAY Qty: 90 RF: 1 Lancets See Rx Instructions .Route .MEDSUPPLY Qty: 100 RF: 3 pen needle, diabetic [1st Tier Unifine Pentips] 31 gauge x 5/16 needle .ROUTE .MEDSUPPLY Qty: 100 RF: 3 losartan 50 mg tablet 50 mg PO DAILY RF: 0 hydrochlorothiazide 25 mg tablet 25 mg PO DAILY RF: 0 metformin [Glucophage] 500 mg tablet 1,000 mg PO BIDCC Qty: 120 RF: 5 [teststrips] - True Metrix .Route .MEDSUPPLY Qty: 100 RF: 3 Humalog KwikPen Insulin 100 unit/mL insulin pen See Rx Instructions SUBCUT QAC Qty: 15 RF: 5 Humalog KwikPen Insulin 100 unit/mL insulin pen 10 unit SUBCUT QAC Qty: 3 RF: 5 Humulin N NPH Insulin KwikPen 100 unit/mL (3 mL) insulin pen 15 unit SUBCUT BID Qty: 15 RF: 5 doxazosin [Cardura] 8 mg tablet 8 mg PO Q DAY Qty: 90 RF: 1 Pen [place] [id number] Qty: 100 RF: 3 tolterodine [Detrol LA] 4 mg capsule,extended release 24hr 4 mg PO DAILY RF: 0 capsaicin [Salonpas-Hot] 0.025 % adhesive patch,medicated 1 patch TOP DAILY PRN (Reason: pain) Qty: 1 RF: 2 citalopram 10 mg Tablet 10 mg PO DAILY Qty: 60 RF: 0 finasteride 5 mg Tablet 5 mg PO DAILY RF: 0 furosemide [Lasix] 20 mg Tablet 20 mg PO DAILY PRN (Reason: Edema) Qty: 10 RF: 0 ondansetron 4 mg Tablet,Disintegrating 4 mg PO Q6-8H PRN (Reason: Nausea) Qty: 60 RF: 0 magnesium oxide 400 mg magnesium Tablet 400 mg PO DAILY RF: 0 lorazepam 0.5 MG tablet 0.5 mg PO Q6HP PRN (Reason: Anxiety) Qty: 60 RF: 0 oxybutynin chloride 5 mg Tablet 5 mg PO DAILY RF: 0 acyclovir 400 mg Tablet 400 mg PO BID Qty: 120 RF: 0 dexamethasone 4 mg Tablet 4 mg PO DAILY Qty: 100 RF: 0 oxycodone 5 mg Tablet 5 mg PO Q6H PRN (Reason: Pain, Moderate) Qty: 60 RF: 0 lidocaine 4 % adhesive patch,medicated 1 patch TOP DAILY PRN (Reason: Pain (Scale Score 1-3)) RF: 0 hydrocodone-acetaminophen 5-325 mg tablet 1 tab PO Q4HR Qty: 14 RF: 0 Referrals: Adrienne Bloom MD [Physician] -
[2018-11-20 13:50] LABS: Hematocrit 21.7 % (41-53); Hemoglobin 7.3 g/dL (13.5-17.5)
[2018-11-20 13:59] LABS: INR 1.1 (0.9-1.3); Prothrombin Time 12.4 SECONDS (10.1-12.7)
[2018-11-20 14:00] VITALS: BP 127/62; PULSE 55
[2018-11-20 14:02] LABS: PTT Partial Thromboplastin Tim 32 SECONDS (26.4-36.2)
--- NOTE | 2018-11-20 14:05 | PC.NURSE ---
oncology nurse Coreen called this am. explains they were trying to do a direct admit for their patient due to low H/H results this am.
[2018-11-20 14:37] VITALS: BP 119/60; PULSE 56; RESP 17; O2SAT 97
== END 2018-11-20 14:40 | disposition home or self-care (01) ==
PROVIDERS: Emergency Provider Emergency Medicine
DX: D64.9 Anemia, unspecified (principal); C90.00 Multiple myeloma not having achieved remission; C90.02 Multiple myeloma in relapse; D69.6 Thrombocytopenia, unspecified; R60.0 Localized edema; N18.3 Chronic kidney disease, stage 3 (moderate)
CPT/HCPCS: 36430; 36592; 80053; 82232; 82784; 83615; 83883; 84155; 84165; 85014; 85018; 85025; 85610; 85730; 86334; 86850; 86900; 86901; 86902; 86971; 99215; 99283; P9016

== ENCOUNTER → 2019-03-17 11:16 | Outpatient (CLI) | payer MEDICARE, SELFPAY ==
[2019-03-17 13:20] LABS: Alanine Aminotransferase 62 IU/L (21-72); Albumin 4.3 g/dL (3.5-5.0); Albumin Globulin Ratio 1.9 (1.0-2.8); Alkaline Phosphatase 123 U/L (38-126); Aspartate Aminotransferase 69 IU/L (17-59); BUN Creatinine Ratio 17.3 (6-22); Bilirubin Total 0.8 mg/dL (0.2-1.3); Blood Urea Nitrogen 19 mg/dL (9-20); Calcium 9.3 mg/dL (8.4-10.2); Carbon Dioxide 26 mmol/L (22-32); Chloride 100 mmol/L (98-107); Estimated Glomerular Filt Rate > 60.0 mL/min (>60); Globulin 2.3 g/dL (1.7-4.1); Glucose 158 mg/dL (80-110); HEMOLYSIS < 15 (0-50); Magnesium 1.7 mg/dL (1.6-2.3); Potassium 4.2 mmol/L (3.4-5.1); Sodium 137 mmol/L (137-145); Total Protein 6.6 g/dL (6.3-8.2)
[2019-03-30 08:33] LABS: Lipoprofile NMR SEE SEPARATE REPORTS
== END ==
PROVIDERS: PCP Student in an Organized Health Care Education/Training Program; Visit Provider Specialist
DX: E78.2 Mixed hyperlipidemia (principal); I10 Essential (primary) hypertension
CPT/HCPCS: 36415; 80053; 83704; 83735

== ENCOUNTER → 2019-07-06 10:14 | Outpatient (CLI) | payer MEDICARE, SELFPAY ==
[2019-07-06 11:24] LABS: Hemoglobin A1C% w Est Avg Glu 7.5 % (4.0-6.0)
== END ==
PROVIDERS: PCP Student in an Organized Health Care Education/Training Program; Referring Provider Student in an Organized Health Care Education/Training Program; Visit Provider Student in an Organized Health Care Education/Training Program
DX: E11.9 Type 2 diabetes mellitus without complications (principal)
CPT/HCPCS: 36415; 83036

== ENCOUNTER → 2019-11-26 09:03 | Outpatient (CLI) | payer MEDICARE, SELFPAY ==
[2019-11-26 10:16] LABS: Alanine Aminotransferase 51 IU/L (<50); Albumin 4.1 g/dL (3.5-5.0); Albumin Globulin Ratio 2.2 (1.0-2.8); Alkaline Phosphatase 118 U/L (38-126); Aspartate Aminotransferase 42 IU/L (17-59); BUN Creatinine Ratio 15.3 (6-22); Bilirubin Total 0.8 mg/dL (0.2-1.3); Blood Urea Nitrogen 17 mg/dL (9-20); Calcium 9.1 mg/dL (8.4-10.2); Carbon Dioxide 28 mmol/L (22-32); Chloride 99 mmol/L (98-107); Estimated Glomerular Filt Rate > 60.0 mL/min (>60); Globulin 1.9 g/dL (1.7-4.1); Glucose 173 mg/dL (80-110); HEMOLYSIS < 15 (0-50); Magnesium 1.9 mg/dL (1.6-2.3); Potassium 4.2 mmol/L (3.4-5.1); Sodium 135 mmol/L (137-145)
[2019-11-28 11:10] LABS: Cholesterol, Total 189 mg/dL (100-199); HDL-Cholesterol 46 mg/dL (>39); HDL-Particle (Total) 30.6 umol/L (>=30.5); Historical Reading Comment: (.); LDL Particle 1327 nmol/L (<1000); LDL Size 20.3 nm (>20.5); LDL-Cholsterol 100 mg/dL (0-99); LP-IR Score 57 (<=45); Small LDL- Particle 735 nmol/L (<=527); Triglycerides 216 mg/dL (0-149)
== END ==
PROVIDERS: PCP Student in an Organized Health Care Education/Training Program; Referring Provider Specialist; Visit Provider Specialist
DX: E78.2 Mixed hyperlipidemia (principal); I10 Essential (primary) hypertension
CPT/HCPCS: 36415; 80053; 80061; 83704; 83735

== ENCOUNTER → 2020-07-27 10:18 | Outpatient (CLI) | payer MEDICARE, SELFPAY ==
[2020-07-27 10:46] LABS: Add Manual Diff / Slide Review NO; Basophils Absolute Auto 0 /uL (0-100); Eosinophils Absolute Auto 100 /uL (0-450); Hematocrit 27.4 % (41-53); Lymphocytes Absolute Auto 400 /uL (1100-4500); Lymphocytes Percent Auto 15.4 % (25-40); Mean Corpuscular Hemoglobin 30.6 PG (26-34); Mean Corpuscular Volume 92.8 fL (80-100); Monocytes Absolute Auto 200 /uL (0-900); Monocytes Percent Auto 7.7 % (3-14); Neutrophils Absolute Auto 1900 /uL (1500-7000); Neutrophils Percent Auto 70.9 % (50-75); Red Blood Cell Count 2.95 X10^6/uL (4.5-5.9); Red Cell Distribution Width 19.4 % (11.6-14.8); White Blood Cell Count 2.7 X10^3/uL (4.5-11.0)
[2020-07-27 11:01] LABS: Alanine Aminotransferase 75 IU/L (<50); Albumin 4.4 g/dL (3.5-5.0); Albumin Globulin Ratio 2.2 (1.0-2.8); Alkaline Phosphatase 117 U/L (38-126); Aspartate Aminotransferase 54 IU/L (17-59); BUN Creatinine Ratio 24.7 (6-22); Bilirubin Total 0.6 mg/dL (0.2-1.3); Blood Urea Nitrogen 24 mg/dL (9-20); Calcium 9.1 mg/dL (8.4-10.2); Carbon Dioxide 26 mmol/L (22-32); Chloride 101 mmol/L (98-107); Estimated Glomerular Filt Rate > 60.0 mL/min (>60); Glucose 130 mg/dL (80-110); HEMOLYSIS < 15 (0-50); Magnesium 2.1 mg/dL (1.6-2.3); Potassium 4.6 mmol/L (3.4-5.1); Sodium 135 mmol/L (137-145); Total Protein 6.4 g/dL (6.3-8.2)
[2020-07-27 11:16] LABS: Platelet Count 45 X10^3/uL (150-400)
[2020-07-27 13:03] LABS: Hemoglobin A1C% w Est Avg Glu 6.8 % (4.0-6.0)
[2020-08-11 13:19] LABS: LDL Particle SEE SEPARATE REPORTS
== END ==
PROVIDERS: Internal Medicine Hematology & Oncology; PCP Student in an Organized Health Care Education/Training Program; Referring Provider Specialist; Visit Provider Specialist
DX: E78.2 Mixed hyperlipidemia (principal); I10 Essential (primary) hypertension; E11.9 Type 2 diabetes mellitus without complications; I44.0 Atrioventricular block, first degree; Z85.820 Personal history of malignant melanoma of skin
CPT/HCPCS: 36415; 80053; 80061; 83036; 83704; 83735; 85025

== ENCOUNTER → 2020-08-03 11:23 | Outpatient (CLI) | payer MEDICARE, SELFPAY ==
[2020-08-03] MEDS: COVID-19 VACC, Ad26(JANSSEN)/PF 0.5 ML IM (11:48)
== END ==
PROVIDERS: PCP Student in an Organized Health Care Education/Training Program; Visit Provider Internal Medicine
DX: Z23 Encounter for immunization (principal)
CPT/HCPCS: 0031A; 91303

== ENCOUNTER → 2021-02-22 09:03 | Outpatient (CLI) | payer MEDICARE, SELFPAY ==
[2021-02-22 10:16] LABS: Alanine Aminotransferase 30 IU/L (<50); Alkaline Phosphatase 129 U/L (38-126); Aspartate Aminotransferase 29 IU/L (17-59); BUN Creatinine Ratio 17.6 (6-22); Bilirubin Total 0.9 mg/dL (0.2-1.3); Blood Urea Nitrogen 29 mg/dL (9-20); Calcium 8.7 mg/dL (8.4-10.2); Carbon Dioxide 34 mmol/L (22-32); Chloride 96 mmol/L (98-107); Estimated Glomerular Filt Rate 40.5 mL/min (>60); Glucose 102 mg/dL (80-110); HEMOLYSIS < 15 (0-50); Magnesium 2.6 mg/dL (1.6-2.3); Potassium 4.3 mmol/L (3.4-5.1); Sodium 136 mmol/L (137-145)
[2021-02-24 10:31] LABS: Cholesterol, Total 164 mg/dL (100-199); HDL-Cholesterol 42 mg/dL (>39); HDL-Particle (Total) 25.9 umol/L (>=30.5); LDL Particle 979 nmol/L (<1000); LDL Size 20.6 nm (>20.5); LDL-Cholsterol 86 mg/dL (0-99); LP-IR Score 39 (<=45); Small LDL- Particle 354 nmol/L (<=527); Triglycerides 217 mg/dL (0-149)
== END ==
PROVIDERS: PCP Student in an Organized Health Care Education/Training Program; Referring Provider Specialist; Visit Provider Specialist
DX: E78.2 Mixed hyperlipidemia (principal); I10 Essential (primary) hypertension
CPT/HCPCS: 36415; 80053; 80061; 83704; 83735

== ENCOUNTER → 2021-03-02 13:29 | Outpatient (CLI) | payer MEDICARE, SELFPAY ==
--- NOTE | 2021-03-02 | DI.US.S_ITS ---
PROCEDURE: US CAROTID DOPPLER BI INDICATIONS: Cerebrovascular disease, unspecified TECHNIQUE: Color and pulse Doppler interrogation was performed of both carotid systems, with image documentation and velocity measurements. COMPARISON: None. FINDINGS: Stenosis calculations are based on SRU (Society of Radiologists in Ultrasound) criteria. Right side: Brachial blood pressure: 127/52 mm Hg. Common carotid artery peak systolic velocity: 57 cm/sec. Internal carotid artery peak systolic velocity: 221 cm/sec. Internal carotid artery end diastolic velocity: 64 cm/sec. External carotid artery peak systolic velocity: 89 cm/sec. ICA/CCA peak systolic ratio: 3.9 . Milligan scale imaging description: Moderate atherosclerotic calcifications of the bulb. Percent internal carotid artery stenosis: 50-69 percent . Vertebral artery: Flow direction is antegrade. Left side: Brachial blood pressure: 141/70 mm Hg. Common carotid artery peak systolic velocity: 113 cm/sec. Internal carotid artery peak systolic velocity: 79 cm/sec. Internal carotid artery end diastolic velocity: 25 cm/sec. External carotid artery peak systolic velocity: 77 cm/sec. ICA/CCA peak systolic ratio: 0.7 . Milligan scale imaging description: Moderate atherosclerotic calcifications of the bulb. Percent internal carotid artery stenosis: No significant stenosis . Vertebral artery: Flow direction is antegrade. IMPRESSION: 1. 50-69 percent stenosis of the right internal carotid artery. Peak systolic velocity has increased from 182 cm/s to 221 cm/s presently. 2. No significant stenosis of the left carotid artery. Dictated by: Julien Ballard M.D. on 03/02/2021 at 16:21 Approved by: Julien Ballard M.D. on 03/02/2021 at 16:25
[2021-03-02 15:42] LABS: BUN Creatinine Ratio 16.3 (6-22); Blood Urea Nitrogen 20 mg/dL (9-20); Calcium 8.8 mg/dL (8.4-10.2); Carbon Dioxide 28 mmol/L (22-32); Chloride 99 mmol/L (98-107); Estimated Glomerular Filt Rate 56.9 mL/min (>60); Glucose 142 mg/dL (80-110); HEMOLYSIS < 15 (0-50); Potassium 4.4 mmol/L (3.4-5.1); Sodium 138 mmol/L (137-145)
[2021-03-03 04:22] LABS: Fructosamine 249 umol/L (0-285)
[2021-03-04 17:37] LABS: Free Lambda Lt Chains,Serum 11.1 mg/L (5.7-26.3)
[2021-03-06 13:36] LABS: Albumin 3.3 g/dL (2.9-4.4); Alpha-1-Globulin 0.2 g/dL (0.0-0.4); Alpha-2-Globulin 0.8 g/dL (0.4-1.0); Gamma Globulin 0.3 g/dL (0.4-1.8); Globulin Total 2.2 g/dL (2.2-3.9); Immunoglobulin A, Serum 34 mg/dL (61-437); Immunoglobulin G,Serum 311 mg/dL (603-1613); Immunoglobulin M, Serum 35 mg/dL (15-143); Protein, Total 5.5 g/dL (6.0-8.5)
== END ==
PROVIDERS: Internal Medicine Hematology & Oncology; PCP Student in an Organized Health Care Education/Training Program; Referring Provider Specialist; Visit Provider Specialist
DX: I67.9 Cerebrovascular disease, unspecified (principal); E11.9 Type 2 diabetes mellitus without complications; I10 Essential (primary) hypertension; C90.00 Multiple myeloma not having achieved remission; I65.21 Occlusion and stenosis of right carotid artery
CPT/HCPCS: 36415; 80048; 82784; 82985; 83883; 84155; 84165; 86334; 93880

== ENCOUNTER → 2021-03-21 11:22 | Outpatient (CLI) | payer MEDICARE, SELFPAY ==
[2021-03-21 13:04] LABS: Blood Urea Nitrogen 30 mg/dL (9-20); Calcium 8.7 mg/dL (8.4-10.2); Carbon Dioxide 27 mmol/L (22-32); Chloride 100 mmol/L (98-107); Estimated Glomerular Filt Rate 47.8 mL/min (>60); Glucose 116 mg/dL (80-110); HEMOLYSIS < 15 (0-50); Sodium 138 mmol/L (137-145)
== END ==
PROVIDERS: PCP Student in an Organized Health Care Education/Training Program; Referring Provider Physician Assistant Medical; Visit Provider Physician Assistant Medical
DX: I10 Essential (primary) hypertension (principal)
CPT/HCPCS: 36415; 80048

== ENCOUNTER → 2021-04-06 10:15 | Outpatient (CLI) | payer MEDICARE, SELFPAY ==
--- NOTE | 2021-04-06 10:18 | DI.RAD.S_ITS ---
PROCEDURE: XR ACUTE ABDOMEN SERIES INDICATIONS: multiple myeloma, abdominal bloating and tightness TECHNIQUE: One view chest and two views of the abdomen were acquired. COMPARISON: [facility], , L-SPINE 2-3 VIEWS, 12/17/2016, 11:13. FINDINGS: Surgical changes and devices: Left subclavian MediPort. Chest: The lung volumes are quite low. Diffuse interstitial thickening. Scattered patchy small ground-glass opacities and bilateral small perihilar nodules. No definite pleural effusions or pneumothorax. Abdomen: No free intraperitoneal air. There is a small amount of gastric and transverse colonic gas. Otherwise paucity of gas in the abdomen. No suspicious air-fluid levels. Organ shadows are within normal limits. Bones: Transpedicular hardware at the L5-S1 level. The right S1 screw may be fractured. Bilateral hip arthroplasties. No visible fractures. IMPRESSION: 1. No free intraperitoneal air. 2. No suspicious dilated bowel loops. 3. Chronically fractured right S1 transpedicular screw. Dictated by: Desiree Corbett M.D. on 04/06/2021 at 12:46 Approved by: Desiree Corbett M.D. on 04/06/2021 at 12:51
== END ==
PROVIDERS: PCP Student in an Organized Health Care Education/Training Program; Referring Provider Internal Medicine Hematology & Oncology; Visit Provider Internal Medicine Hematology & Oncology
DX: C90.00 Multiple myeloma not having achieved remission (principal); R14.0 Abdominal distension (gaseous); T84.418A Breakdown (mechanical) of other internal orthopedic devices, implants and grafts, initial encounter
CPT/HCPCS: 74022

== ENCOUNTER 2021-04-10 20:44 | Emergency (ER) | payer MEDICARE, SELFPAY ==
[2021-04-10] VITALS (16 sets, daily range): BP systolic 85–135; BP diastolic 50–80; PULSE 43–47; RESP 13–20; TEMP 36.5; O2SAT 88–98
--- NOTE | 2021-04-10 | DI.US.S_ITS ---
PROCEDURE: US RENAL COMPLETE INDICATIONS: ELEVATED CREATININE TECHNIQUE: Real-time scanning was performed of the kidneys and bladder, with image documentation. COMPARISON: [facility], , RENAL COMPLETE, 11/11/2013, 15:02. FINDINGS: Kidneys: Kidneys are normal in size. Right kidney measures 11.4 cm long; left kidney measures 11.2 cm long. Right renal cortical thickness is 1.5 cm; left renal cortical thickness is 2.0 cm. Renal cortical echotexture is normal. No hydronephrosis or nephrolithiasis. No suspicious solid mass lesions. Bladder: A Joshua catheter is present. Miscellaneous: No free pelvic fluid. IMPRESSION: No hydronephrosis. Dictated by: Jeramie Shelby M.D. on 04/11/2021 at 0:03 Approved by: Jeramie Shelby M.D. on 04/11/2021 at 0:04
--- NOTE | 2021-04-10 20:51 | DI.RAD.S_ITS ---
PROCEDURE: XR ABDOMEN MIN 2V INDICATIONS: pain, distension TECHNIQUE: 2 views of the abdomen were acquired. COMPARISON: None. FINDINGS: Surgical changes and devices: Lumbosacral spine fixation hardware and bilateral hip arthroplasties. Bowel: No pneumoperitoneum. The bowel gas pattern is normal. Moderate amount of stool noted in the colon. Soft tissues: No masses; visualized solid organ contours appear normal in size. No suspicious abdominal calcifications. Bones: No suspicious bony abnormalities. IMPRESSION: Moderate moderate amount of stool in the colon. Dictated by: Beulah Mariee MD, PhD on 04/10/2021 at 21:14 Approved by: Beulah Mariee MD, PhD on 04/10/2021 at 21:15
--- NOTE | 2021-04-10 20:51 | DI.RAD.S_ITS ---
PROCEDURE: XR CHEST 1V INDICATIONS: weakness, fatigue TECHNIQUE: One view of the chest was acquired. COMPARISON: [facility], CR, XR CHEST 1V, 05/13/2018, 13:30. FINDINGS: Surgical changes and devices: Left chest wall Port-A-Cath is stable. Lungs and pleura: Lungs hypoinflated likely due to poor inspiratory effort.. Patchy opacity in left lung base. No pleural effusions or pneumothorax. Mediastinum: Mediastinal contours appear normal. Heart size is normal. Bones and chest wall: No suspicious bony lesions. Overlying soft tissues appear unremarkable. IMPRESSION: Left basilar atelectasis versus pneumonia. Dictated by: Beulah Mariee MD, PhD on 04/10/2021 at 21:19 Approved by: Beulah Mariee MD, PhD on 04/10/2021 at 21:19
--- NOTE | 2021-04-10 20:52 | ED.WEAKNESS ---
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 tablet 25 mg PO QDAY 0RF Rx Instructions: Take one tablet once a day. ondansetron 4 mg Tablet,Disintegrating 4 mg PO Q6-8H PRN (Reason: Nausea) Qty: 60 0RF citalopram 10 mg Tablet 10 mg PO DAILY Qty: 60 0RF acyclovir 400 mg Tablet 400 mg PO BID Qty: 120 0RF Rx Instructions: 1 tab twice daily anti viral prophalyxis while on chemotherapy oxycodone-acetaminophen 7.5-325 mg Tablet 1 tab PO Q6H PRN (Reason: multiple myeloma, bone pain) Qty: 90 0RF lidocaine 4 % adhesive patch,medicated 1 patch TOP DAILY PRN (Reason: Pain (Scale Score 1-3)) 0RF Rx Instructions: 12hours on then 12hours off Referrals: Gianluca Arana MD [Primary Care Provider] -
--- NOTE | 2021-04-10 20:55 | DI.US.S_ITS ---
PROCEDURE: US ABDOMEN LIMITED INDICATIONS: ascites TECHNIQUE: Real-time focused scanning was performed of the abdomen, with image documentation. COMPARISON: None. FINDINGS: Moderate to large amount ascites. Skin was marked for paracentesis access site. IMPRESSION: Moderate to large amount of ascites. Dictated by: Beulah Mariee MD, PhD on 04/10/2021 at 21:42 Approved by: Beulah Mariee MD, PhD on 04/10/2021 at 21:42
[2021-04-10] MEDS: DEXTROSE 10 % IN WATER 1,000 ML 125 ML IV (21:00)
[2021-04-10 21:03] LABS: Add Manual Diff / Slide Review NO; Basophils Absolute Auto 0 /uL (0-100); Basophils Percent Auto 0.1 % (0-2); Eosinophils Absolute Auto 0 /uL (0-450); Eosinophils Percent Auto 0.2 % (2-4); Hematocrit 29.6 % (41-53); Hemoglobin 9.4 g/dL (13.5-17.5); Lymphocytes Absolute Auto 300 /uL (1100-4500); Lymphocytes Percent Auto 9.1 % (25-40); Mean Corpuscular HGB Conc 31.9 % (30-36); Mean Corpuscular Hemoglobin 28.7 PG (26-34); Mean Corpuscular Volume 90.2 fL (80-100); Monocytes Absolute Auto 400 /uL (0-900); Monocytes Percent Auto 9.9 % (3-14); Neutrophils Absolute Auto 3000 /uL (1500-7000); Neutrophils Percent Auto 80.7 % (50-75); Platelet Count 78 X10^3/uL (150-400); Red Blood Cell Count 3.28 X10^6/uL (4.5-5.9); Red Cell Distribution Width 19.9 % (11.6-14.8); White Blood Cell Count 3.8 X10^3/uL (4.5-11.0)
[2021-04-10 21:11] LABS: INR 1.2 (0.9-1.3); Prothrombin Time 13.2 SECONDS (10.1-12.7)
[2021-04-10 21:18] LABS: Alanine Aminotransferase 32 IU/L (<50); Albumin 3.7 g/dL (3.5-5.0); Albumin Globulin Ratio 1.5 (1.0-2.8); Alkaline Phosphatase 177 U/L (38-126); Aspartate Aminotransferase 36 IU/L (17-59); BUN Creatinine Ratio 9.8 (6-22); Bilirubin Total 0.6 mg/dL (0.2-1.3); Blood Urea Nitrogen 65 mg/dL (9-20); Calcium 8.8 mg/dL (8.4-10.2); Carbon Dioxide 23 mmol/L (22-32); Chloride 98 mmol/L (98-107); Creatine Kinase 97 U/L (55-170); Estimated Glomerular Filt Rate 8.1 mL/min (>60); Globulin 2.4 g/dL (1.7-4.1); HEMOLYSIS < 15 (0-50); Lipase 17 U/L (23-300); Sodium 133 mmol/L (137-145); Total Protein 6.1 g/dL (6.3-8.2)
[2021-04-10 21:30] LABS: NT-proBNP (BNP-Adult 18+) 3450 pg/mL (<450); Troponin I 0.028 ng/mL (0.01-0.034)
[2021-04-10 21:38] LABS: Potassium 6.2 mmol/L (3.4-5.1)
[2021-04-10 21:40] LABS: Glucose 31 mg/dL (80-110)
[2021-04-10 21:48] LABS: Ammonia (NH3) 22 umol/L (9-30); Lactate (Lactic Acid) 3.7 mmol/L (0.7-2.1)
[2021-04-10] MEDS: DEXTROSE 50 % IN WATER 25 GM/50 ML SYRINGE IV (22:05)
[2021-04-10] MEDS: FUROSEMIDE 40 MG/4 ML VIAL IV (22:05)
[2021-04-10] MEDS: INSULIN REGULAR 100 UNIT/ML 3 ML VIAL IV (22:05)
[2021-04-10 22:20] LABS: COVID19 - ADMIT (NP swab/PCR) Negative (Negative)
[2021-04-10] MEDS: cefTRIAXone 2,000 MG in SODIUM CHLORIDE 0.9% 100 ML 200 ML IV (22:29)
[2021-04-10 23:23] LABS: Reflexed Lactate in 2 Hours Y
[2021-04-10 23:27] LABS: Creatinine Urine Random 143.9 mg/dL; Sodium Urine Random 33 mmol/L (30-90)
[2021-04-10 23:41] LABS: BUN Creatinine Ratio 9.6 (6-22); Blood Urea Nitrogen 63 mg/dL (9-20); Carbon Dioxide 22 mmol/L (22-32); Chloride 98 mmol/L (98-107); Estimated Glomerular Filt Rate 8.2 mL/min (>60); Glucose 134 mg/dL (80-110); HEMOLYSIS < 15 (0-50); Sodium 131 mmol/L (137-145)
[2021-04-10 23:43] LABS: Lactate 2HR (Lactic Acid Rflx) 4.1 mmol/L (0.7-2.1); Potassium 6.6 mmol/L (3.4-5.1)
[2021-04-11] VITALS (62 sets, daily range): BP systolic 98–157; BP diastolic 51–88; PULSE 41–52; RESP 14–29; O2SAT 82–99
[2021-04-11] MEDS: SODIUM CHLORIDE 0.9% 500 ML 1000 ML IV ×2 (00:14→02:49)
[2021-04-11] MEDS: FUROSEMIDE 200 MG in SODIUM CHLORIDE 0.9% 50 ML 140 ML IV (00:28)
[2021-04-11] MEDS: SODIUM POLYSTYRENE SULFON/SORB 15 GM/60 ML CUP 30 GM PO (00:29)
[2021-04-11] MEDS: CALCIUM GLUCONATE 4.65 MEQ in SODIUM CHLORIDE 0.9% 50 ML 180 ML IV (00:58)
[2021-04-11 02:45] LABS: Add Manual Diff / Slide Review NO; Basophils Absolute Auto 0 /uL (0-100); Basophils Percent Auto 0.2 % (0-2); Eosinophils Absolute Auto 0 /uL (0-450); Eosinophils Percent Auto 0.1 % (2-4); Hemoglobin 8.1 g/dL (13.5-17.5); Lymphocytes Absolute Auto 300 /uL (1100-4500); Lymphocytes Percent Auto 10.3 % (25-40); Mean Corpuscular HGB Conc 31.1 % (30-36); Mean Corpuscular Hemoglobin 28.4 PG (26-34); Mean Corpuscular Volume 91.3 fL (80-100); Monocytes Absolute Auto 300 /uL (0-900); Monocytes Percent Auto 8.7 % (3-14); Neutrophils Absolute Auto 2700 /uL (1500-7000); Neutrophils Percent Auto 80.7 % (50-75); Platelet Count 66 X10^3/uL (150-400); Red Blood Cell Count 2.85 X10^6/uL (4.5-5.9); Red Cell Distribution Width 19.3 % (11.6-14.8); White Blood Cell Count 3.3 X10^3/uL (4.5-11.0)
[2021-04-11 02:54] LABS: Alanine Aminotransferase 27 IU/L (<50); Albumin 3.2 g/dL (3.5-5.0); Albumin Globulin Ratio 1.5 (1.0-2.8); Alkaline Phosphatase 147 U/L (38-126); Aspartate Aminotransferase 32 IU/L (17-59); Bilirubin Total 0.4 mg/dL (0.2-1.3); Blood Urea Nitrogen 61 mg/dL (9-20); Calcium 8.2 mg/dL (8.4-10.2); Carbon Dioxide 19 mmol/L (22-32); Chloride 97 mmol/L (98-107); Estimated Glomerular Filt Rate 7.9 mL/min (>60); Globulin 2.1 g/dL (1.7-4.1); Glucose 163 mg/dL (80-110); HEMOLYSIS < 15 (0-50); Sodium 130 mmol/L (137-145); Total Protein 5.3 g/dL (6.3-8.2)
[2021-04-11 02:56] LABS: Lactate (Lactic Acid) 4.5 mmol/L (0.7-2.1); Potassium 6.5 mmol/L (3.4-5.1)
--- NOTE | 2021-04-11 03:00 | PC.NURSE ---
No BM after Kayexelate. No urine output after Lasix. Dr Stevenson robertson.
[2021-04-11 03:29] LABS: HCO3 VBG 22 mmol/L (23-28); PCO2 VBG 55.9 mmHg (45-50); PO2 VBG 29 mmHg (35-45); Total CO2 VBG 24 mmol/L (24-29)
[2021-04-11 03:30] LABS: Oxygen Saturation VBG 42 % (70-75)
[2021-04-11] MEDS: ONDANSETRON 4 MG/2 ML INJ IV (03:40)
--- NOTE | 2021-04-11 03:59 | PC.NURSE ---
Pt noted with 1 loose BM. Pt cleaned up, worsening dependent/penile edema noted. Abd large/firm. Crackles auscultated to R lung sykes. Pt is alert, without complaint. Denies pain/SOB. Dr Gamino updated to pt condition.
[2021-04-11 06:32] LABS: Reflexed Lactate in 2 Hours Y
--- NOTE | 2021-04-11 07:49 | PC.NURSE ---
Patient alert to name/ however he thinks he's in [place]. Not oriented to date/time/place.
--- NOTE | 2021-04-11 08:07 | DI.US.S_ITS ---
PROCEDURE: US PARACENTESIS INDICATIONS: ASCITIES TECHNIQUE: The indications, alternatives, benefits, risks, and complications of the procedure were explained to the patient. Written informed consent was obtained and placed in the chart. The abdomen and pelvis were examined sonographically, and an appropriate site was chosen for paracentesis. The skin was prepared and draped in the usual sterile fashion, and 1% lidocaine was infiltrated from the skin down through the peritoneal surface. A 19-gauge catheter-covered needle was then introduced into the peritoneal space, the catheter was advanced and the needle was withdrawn, and thereafter peritoneal fluid was withdrawn. The catheter was then removed and a dressing was applied. The fluid was discarded if the clinician did not order diagnostic testing of the fluid. COMPARISON: None. FINDINGS: Access site: Right lower quadrant Needle: One-Step centesis catheter with introducer needle. Fluid volume and description: 4000 cc of ascites Fluid sent for diagnostic testing: Not requested Medications: 1% lidocaine for local anaesthesia. Complications: None. IMPRESSION: Successful ultrasound-guided paracentesis. Dictated by: Parish Harkins M.D. on 04/11/2021 at 13:05 Approved by: Parish Harkins M.D. on 04/11/2021 at 13:10
[2021-04-11 09:47] LABS: BUN Creatinine Ratio 9.1 (6-22); Blood Urea Nitrogen 61 mg/dL (9-20); Calcium 8.3 mg/dL (8.4-10.2); Carbon Dioxide 20 mmol/L (22-32); Chloride 97 mmol/L (98-107); Glucose 115 mg/dL (80-110); HEMOLYSIS < 15 (0-50); Sodium 132 mmol/L (137-145)
[2021-04-11 09:48] LABS: Potassium 6.6 mmol/L (3.4-5.1)
[2021-04-11 09:49] LABS: Lactate 2HR (Lactic Acid Rflx) 5.2 mmol/L (0.7-2.1)
--- NOTE | 2021-04-11 11:29 | PC.NURSE ---
Pt abd tapped for peritoneal fluid removal, tolerated procedure well. at the bedside.
== END 2021-04-11 11:52 | disposition home or self-care (01) ==
PROVIDERS: Emergency Medicine; Emergency Provider Emergency Medicine; PCP Student in an Organized Health Care Education/Training Program
DX: N17.9 Acute kidney failure, unspecified (principal); K76.7 Hepatorenal syndrome; R18.8 Other ascites; R03.0 Elevated blood-pressure reading, without diagnosis of hypertension
CPT/HCPCS: 36415; 49083; 71045; 74019; 76705; 76770; 80048; 80053; 82009; 82140; 82550; 82570; 82805; 82962; 83605; 83690; 83880; 84300; 84484; 85025; 85610; 87040; 87635; 93005; 96361; 96365; 96366; 96367; 96368; 96375; 99285; C9803; J0610; J0696; J1642; J1940; J2405